=== PATIENT | male | born 1985 | race Caucasian/White ===

== ENCOUNTER 2018-03-20 09:15 | Day surgery (SDC) | payer BC ==
[~2018-03-20] VITALS: Ht 180.3 cm; Wt 91.2 kg
[~2018-03-20 09:15] MED LIST: AZIT500 PO; CEPH500 PO; CETI5 PO; CODACE30 PO; HYDACE5 PO; NAPR500 PO; SULTRIDS PO; Sudogest30 MG PO
== END 2018-03-20 13:05 | disposition home or self-care (01) ==
LOC: ORSCMMR 09:15 → ORD 10:45 → ORSCMMR 10:45
PROVIDERS: Surgery
PROC: 0JB40ZZ Excision of Right Neck Subcutaneous Tissue and Fascia, Open Approach (ICD-10-PCS; principal; 2018-03-20 10:45)
DX: D17.0 Benign lipomatous neoplasm of skin and subcutaneous tissue of head, face and neck (principal); L72.0 Epidermal cyst
CPT/HCPCS: 88304; J0690; J2001; J2250; J3010; J7120